=== PATIENT | male | born 1970 ===

== ENCOUNTER 2022-02-17 08:37 | Day surgery (SDC) | payer BC ==
[~2022-02-17] VITALS: Ht 180.3 cm; Wt 103.7 kg
[2022-02-17] MEDS ORDERED: AMPDEX30CR (08:50)
[2022-02-17] MEDS ORDERED: VENL75ER (08:50)
[2022-02-17] MEDS ORDERED: CARV25 (08:50)
[2022-02-17] MEDS ORDERED: METF500 (08:50)
[2022-02-17] MEDS ORDERED: FARXIGA10 MG (08:50)
== END 2022-02-17 10:48 | disposition home or self-care (01) ==
LOC: ORSCSDS 08:37 → ORD 09:45 → ORSCSDS 10:48
PROVIDERS: Internal Medicine Gastroenterology
PROC: 0DJD8ZZ Inspection of Lower Intestinal Tract, Via Natural or Artificial Opening Endoscopic (ICD-10-PCS; principal; 2022-02-17 09:45)
DX: R19.5 Other fecal abnormalities (principal); K57.30 Diverticulosis of large intestine without perforation or abscess without bleeding; I10 Essential (primary) hypertension; E11.9 Type 2 diabetes mellitus without complications; F98.8 Other specified behavioral and emotional disorders with onset usually occurring in childhood and adolescence; E66.9 Obesity, unspecified; Z68.32 Body mass index [BMI] 32.0-32.9, adult; Z79.84 Long term (current) use of oral hypoglycemic drugs; Z79.899 Other long term (current) drug therapy
CPT/HCPCS: 82947; J2704; J7120